=== PATIENT | male | born 1980 | race Caucasian/White ===

== ENCOUNTER 2016-12-02 11:28 | Emergency (ER) | payer MEDICARE, MEDICAID ==
[2016-12-02 12:14] VITALS: BP 158/86; TEMP 98.4; O2SAT 100
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
[2016-12-02] MEDS ORDERED: KETOROLAC TROMETHAMINE INJ 60 MG/2 ML VIAL IM ONE (13:00)
--- NOTE | 2016-12-02 13:30 | RAD ---
EXAM DESCRIPTION: XR HUMERUS CLINICAL HISTORY: nontramatic pain COMPARISON: None available FINDINGS: Two views of the left humerus show no acute fracture or malalignment. There are mild degenerative changes in left AC joint. No radiopaque foreign body or soft tissue gas. There is no apparent left-sided rib fracture. IMPRESSION: Mild degenerative changes in the left AC joint, otherwise unremarkable exam. Electronically signed by: Pancho Patton DO 12/02/2016 13:28
--- NOTE | 2016-12-02 13:31 | RAD ---
EXAM DESCRIPTION: XR FOREARM 2 VIEWS CLINICAL HISTORY: nontramatic pain COMPARISON: None. IMPRESSION: Two nonstandard views of the left forearm are obtained. There is an oblique AP view of the forearm with lateral view of the elbow only. No obvious acute fracture, focal bone destruction, or joint dislocation is seen. No obvious joint effusion is seen in the elbow. The forearm is incompletely visualized on lateral projection. Electronically signed by: Kranthi Hernandez MD 12/02/2016 13:29
--- NOTE | 2016-12-02 13:31 | RAD ---
EXAM DESCRIPTION: XR TIBIA FIBULA 2 VIEWS CLINICAL HISTORY: nontramatic pain COMPARISON: None available FINDINGS: Four views of the right tibia and fibula show no acute fracture or malalignment. There is no focal bone lesion or periosteal reaction. No radiopaque foreign body or soft tissue gas. IMPRESSION: Negative exam. Electronically signed by: Pancho Patton DO 12/02/2016 13:29
== END 2016-12-02 15:58 | disposition home or self-care (01) ==
LOC: ER 11:28
DX: M79.1 Myalgia (principal); E11.9 Type 2 diabetes mellitus without complications; Z80.8 Family history of malignant neoplasm of other organs or systems; Z88.8 Allergy status to other drugs, medicaments and biological substances; Z79.899 Other long term (current) drug therapy; Z87.891 Personal history of nicotine dependence
CPT/HCPCS: 36415; 73060; 73090; 73590; 80053; 84550; 85025; 85651; 86038; 86060; 86140; 86431; J1885; J2060